=== PATIENT | female | born 1960 | race Caucasian/White ===

== ENCOUNTER 2017-11-29 14:48 | Emergency (ER) | payer MEDICARE ==
[~2017-11-29] VITALS: Ht 157.5 cm; Wt 54.5 kg
[~2017-11-29 14:48] MED LIST: GABA300C10 PO; LISI-170 PO; LORA1TAB PO; SENN-87 PO; TRAZ50TA18 PO
[2017-11-29] MEDS ORDERED: SODIUM CHLORIDE FLUSH 10ML SYR IVF ONE (15:00)
[2017-11-29] MEDS ORDERED: SODIUM CHLORIDE 0.9% 1,000ML IVBOLUS ONE ×2 (15:00→15:30)
[2017-11-29] MEDS ORDERED: ONDANSETRON 2MG/ML, 2ML IVPush ONE (15:00)
[2017-11-29] MEDS ORDERED: LORazepam 2 MG/ML, 1ML IVPush ONE (15:30)
[2017-11-29] MEDS ORDERED: ONDANSETRON 2MG/ML, 2ML ONE (15:42)
[2017-11-29] MEDS ORDERED: LORazepam 2 MG/ML, 1ML ONE (15:42)
[2017-11-29 15:45] LABS: ALANINE AMINOTRANSFERASE 46 U/L (12-78); ALBUMIN 3.4 g/dL (3.4-5.0); ANION GAP 7 mmol/L (5-15); CALCIUM 8.4 mg/dL (8.5-10.1); CHLORIDE 105 mmol/L (98-107); CREATININE 0.52 mg/dL (0.55-1.02)
[2017-11-29 15:50] LABS: ALKALINE PHOSPHATASE 83 U/L (45-117); BILIRUBIN,TOTAL 0.4 mg/dL (0.2-1.0); TOTAL PROTEIN 7.9 g/dL (6.4-8.2); TROPONIN I < 0.015 ng/mL (0.000-0.045)
[2017-11-29 15:53] LABS: MD YES
[2017-11-29 15:58] LABS: MEAN CORPUSCULAR HGB CONC 32.6 g/dL (32.4-35.8); MEAN CORPUSCULAR VOLUME 89.1 fL (80-100); RED BLOOD COUNT 5.68 x10^6/uL (3.82-5.3); RED CELL DISTRIBUTION WIDTH 15.4 % (9.6-15.2)
[2017-11-29 16:03] LABS: EOS#(MANUAL) 0.33 x10^3/uL (0.0-0.4); EOS% (MANUAL) 2 % (1-7); LYMPH#(MANUAL) 2.62 x10^3/uL (1-3.4); LYMPHS% (MANUAL) 16 % (22-44); MONOS% (MANUAL) 11 % (2-9); SEG#(MANUAL) 11.64 x10^3/uL (1.8-6.8); SEGS% (MANUAL) 71 % (42-75)
[2017-11-29 16:07] LABS: ANISOCYTOSIS 1+; SPHEROCYTES 1+
[2017-11-29 16:08] LABS: HOWELL-JOLLY BODIES 1+
[2017-11-29 16:09] LABS: <PLATELET ESTIMATE> ADEQUATE; GIANT PLATELETS 1+
[2017-11-29 16:27] LABS: MEAN PLATELET VOLUME 13.1 fL (7.4-10.4)
[2017-11-29 16:28] LABS: PLATELET COUNT 210 x10^3/uL (130-400)
[2017-11-29 17:17] VITALS: BP 121/84
[2017-11-29] MEDS ORDERED: HYDROmorphone 2 MG/ML, 1ML ONE (17:25)
== END 2017-11-29 17:21 | disposition home or self-care (01) ==
LOC: ED 17:02
DX: F41.1 Generalized anxiety disorder (principal); R11.2 Nausea with vomiting, unspecified
CPT/HCPCS: 36415; 71045; 80053; 83690; 84484; 85025; 93005; 96374; 96375; 99285; J2060; J2405

== ENCOUNTER 2018-02-04 16:59 | Emergency (ER) | payer MEDICARE ==
[~2018-02-04] VITALS: Ht 157.5 cm; Wt 58.0 kg
[~2018-02-04 16:59] MED LIST changes: +NICO-487 TD; +PRED5TAB PO; +PROMACTA PO
[2018-02-04] MEDS ORDERED: LORazepam 2 MG/ML, 1ML ONE (17:38)
[2018-02-04] MEDS ORDERED: LORazepam 2 MG/ML, 1ML IM ONE (18:00)
[2018-02-04 18:18] VITALS: BP 144/88
== END 2018-02-04 18:44 | disposition home or self-care (01) ==
LOC: ED 18:20
DX: F41.1 Generalized anxiety disorder (principal); R11.2 Nausea with vomiting, unspecified; I10 Essential (primary) hypertension
CPT/HCPCS: 96372; 99284; J2060

== ENCOUNTER 2018-03-12 12:10 | Inpatient (IN) | payer MEDICARE ==
[~2018-03-12] VITALS: Ht 157.5 cm; Wt 57.9 kg
[~2018-03-12 12:10] MED LIST changes: +GABA300C PO; +PRED20TA PO; +QUET200T4 PO
[2018-03-12] MEDS ORDERED: ACETAMINOPHEN 500 MG TABLET ONE (13:26)
[2018-03-12] MEDS ORDERED: SODIUM CHLORIDE 0.9% 1,000ML IVBOLUS ONE ×2 (13:30→15:00)
[2018-03-12] MEDS ORDERED: ACETAMINOPHEN 500 MG TABLET PO ONE (13:30)
[2018-03-12] MEDS ORDERED: SODIUM CHLORIDE FLUSH 10ML SYR IVF ONE (13:30)
[2018-03-12 13:55] LABS: ALANINE AMINOTRANSFERASE 49 U/L (12-78); ALBUMIN 2.3 g/dL (3.4-5.0); ANION GAP 10 mmol/L (5-15); CALCIUM 8.8 mg/dL (8.5-10.1); CHLORIDE 106 mmol/L (98-107); CREATININE 0.66 mg/dL (0.55-1.02)
[2018-03-12 13:57] LABS: ALKALINE PHOSPHATASE 93 U/L (45-117); BILIRUBIN,TOTAL 0.4 mg/dL (0.2-1.0); TOTAL PROTEIN 7.7 g/dL (6.4-8.2)
[2018-03-12 14:00] LABS: TROPONIN I < 0.015 ng/mL (0.000-0.045)
[2018-03-12 14:04] LABS: MEAN CORPUSCULAR HGB CONC 33.7 g/dL (32.4-35.8); MEAN CORPUSCULAR VOLUME 85.9 fL (80-100); RED BLOOD COUNT 4.39 x10^6/uL (3.82-5.3); RED CELL DISTRIBUTION WIDTH 15.7 % (9.6-15.2)
[2018-03-12 14:05] LABS: PLATELET COUNT 26 x10^3/uL (130-400)
[2018-03-12 14:06] LABS: MD YES; MEAN PLATELET VOLUME 11.6 fL (7.4-10.4)
[2018-03-12 14:07] LABS: BAND#(MANUAL) 0.28 x10^3/uL; BANDS%(MANUAL) 1 % (0-7); LYMPH#(MANUAL) 0.55 x10^3/uL (1-3.4); LYMPHS% (MANUAL) 2 % (22-44); MONOS#(MANUAL) 1.11 x10^3/uL (0.3-2.7); MONOS% (MANUAL) 4 % (2-9); SEG#(MANUAL) 25.76 x10^3/uL (1.8-6.8); SEGS% (MANUAL) 93 % (42-75)
[2018-03-12 14:08] LABS: ANISOCYTOSIS 1+; HOWELL-JOLLY BODIES 1+; POLYCHROMASIA 1+
[2018-03-12 14:09] LABS: <PLATELET ESTIMATE> DECREASED; GIANT PLATELETS 1+; LARGE PLATELETS 1+
[2018-03-12 14:51] LABS: MICROSCOPIC AUTO
[2018-03-12 15:00] LABS: CULTURE INDICATED? YES
[2018-03-12] MEDS ORDERED: CEFTRIAXONE PMX 1GM/50ML 50 ML ONE (15:13)
[2018-03-12] MEDS ORDERED: CEFTRIAXONE PMX 1GM/50ML 50 ML IV ONE (15:30)
[2018-03-12] MEDS ORDERED: ONDANSETRON 2MG/ML, 2ML IVPush PRN (16:30)
[2018-03-12] MEDS ORDERED: QUET200T4 PO (16:46)
[2018-03-12] MEDS ORDERED: ONDANSETRON ODT 4 MG PO PRN (17:00)
[2018-03-12] MEDS: ACETAMINOPHEN 325 MG TABLET PO PRN (18:02)
[2018-03-12] MEDS: METHOCARBAMOL 500 MG TABLET PO PRN (18:02)
[2018-03-12] MEDS: SODIUM CHLORIDE 0.9% 1,000 ML IV SCH (18:25)
[2018-03-12 18:50] VITALS: BP 100/66
[2018-03-12 19:22] LABS: TROPONIN I < 0.015 ng/mL (0.000-0.045)
[2018-03-12] MEDS ORDERED: QUETIAPINE 200 MG TABLET PO SCH (21:00)
[2018-03-12] MEDS ORDERED: LORazepam 1MG TABLET PO SCH ×2 (21:00)
[2018-03-12] MEDS ORDERED: LORazepam 0.5MG TABLET ONE (21:46)
[2018-03-12] MEDS: GABAPENTIN 300 MG CAPSULE PO PRN (21:48)
[2018-03-12] MEDS: ALUMINUM/MAG/SIMETHICONE 30 ML UDC PO PRN (21:48)
[2018-03-12] MEDS: NICOTINE 21 MG/24 HR PATCH.TD24 TD SCH (21:49)
[2018-03-13 01:25] LABS: TROPONIN I < 0.015 ng/mL (0.000-0.045)
[2018-03-13] MEDS: SODIUM CHLORIDE 0.9% 1,000 ML IV SCH ×3 (01:57→18:09)
[2018-03-13] MEDS: METHOCARBAMOL 500 MG TABLET PO PRN ×3 (01:57→18:15)
[2018-03-13 02:00] VITALS: BP 134/77
[2018-03-13] MEDS: LORazepam 0.5MG TABLET PO SCH ×4 (03:08→21:39)
[2018-03-13] MEDS: GABAPENTIN 300 MG CAPSULE PO PRN (05:36)
[2018-03-13] MEDS: ACETAMINOPHEN 325 MG TABLET PO PRN (05:36)
[2018-03-13 06:41] VITALS: BP 145/77
[2018-03-13 06:41] LABS: ANION GAP 6 mmol/L (5-15); CALCIUM 7.4 mg/dL (8.5-10.1); CHLORIDE 113 mmol/L (98-107); CREATININE 0.36 mg/dL (0.55-1.02)
[2018-03-13 06:44] LABS: TROPONIN I < 0.015 ng/mL (0.000-0.045)
[2018-03-13 06:45] LABS: MEAN CORPUSCULAR HEMOGLOBIN 29.5 pg (27.0-34.8); MEAN CORPUSCULAR HGB CONC 33.9 g/dL (32.4-35.8); MEAN CORPUSCULAR VOLUME 86.9 fL (80-100); MEAN PLATELET VOLUME 9.8 fL (7.4-10.4); RED BLOOD COUNT 4.06 x10^6/uL (3.82-5.3); RED CELL DISTRIBUTION WIDTH 16.6 % (9.6-15.2)
[2018-03-13 06:46] LABS: MD YES
[2018-03-13 06:48] LABS: EOS#(MANUAL) 0.21 x10^3/uL (0.0-0.4); EOS% (MANUAL) 1 % (1-7); LYMPH#(MANUAL) 2.33 x10^3/uL (1-3.4); LYMPHS% (MANUAL) 11 % (22-44); MONOS#(MANUAL) 2.12 x10^3/uL (0.3-2.7); MONOS% (MANUAL) 10 % (2-9); NRBC % (MANUAL) 1 % (0-1); SEG#(MANUAL) 16.54 x10^3/uL (1.8-6.8); SEGS% (MANUAL) 78 % (42-75)
[2018-03-13 06:53] LABS: <PLATELET ESTIMATE> DECREASED; ANISOCYTOSIS 1+; GIANT PLATELETS 1+; LARGE PLATELETS 1+; PLATELET COUNT 21 x10^3/uL (130-400); POLYCHROMASIA 1+
[2018-03-13] MEDS ORDERED: QUETIAPINE 200 MG TABLET PO SCH (09:00)
[2018-03-13] MEDS: LISINOPRIL 20 MG TABLET PO SCH (09:32)
[2018-03-13 14:17] VITALS: BP 118/75
[2018-03-13] MEDS: ALUMINUM/MAG/SIMETHICONE 30 ML UDC PO PRN ×2 (18:15→23:57)
[2018-03-13] MEDS: NICOTINE 21 MG/24 HR PATCH.TD24 TD SCH (19:41)
[2018-03-13 19:45] VITALS: BP 124/79
[2018-03-13] MEDS ORDERED: TEMAZEPAM 15 MG CAPSULE PO ONE (21:30)
[2018-03-14] MEDS: SODIUM CHLORIDE 0.9% 1,000 ML IV SCH (01:12)
[2018-03-14 01:25] VITALS: BP 147/82
[2018-03-14] MEDS: METHOCARBAMOL 500 MG TABLET PO PRN ×2 (02:33→09:46)
[2018-03-14] MEDS: LORazepam 0.5MG TABLET PO SCH ×4 (03:03→21:24)
[2018-03-14 07:06] VITALS: BP 148/93
[2018-03-14 08:26] LABS: MEAN CORPUSCULAR HEMOGLOBIN 28.9 pg (27.0-34.8); MEAN CORPUSCULAR HGB CONC 33.5 g/dL (32.4-35.8); MEAN CORPUSCULAR VOLUME 86.3 fL (80-100); RED BLOOD COUNT 4.02 x10^6/uL (3.82-5.3); RED CELL DISTRIBUTION WIDTH 16.3 % (9.6-15.2)
[2018-03-14 08:28] LABS: ANION GAP 9 mmol/L (5-15); CALCIUM 7.5 mg/dL (8.5-10.1); CHLORIDE 113 mmol/L (98-107)
[2018-03-14 08:29] LABS: CREATININE 0.41 mg/dL (0.55-1.02)
[2018-03-14 08:40] LABS: MD YES
[2018-03-14 08:41] LABS: BANDS%(MANUAL) 1 % (0-7); EOS% (MANUAL) 1 % (1-7); LYMPH#(MANUAL) 1.78 x10^3/uL (1-3.4); LYMPHS% (MANUAL) 9 % (22-44); MONOS#(MANUAL) 1.39 x10^3/uL (0.3-2.7); MONOS% (MANUAL) 7 % (2-9); NRBC % (MANUAL) 1 % (0-1); SEG#(MANUAL) 16.24 x10^3/uL (1.8-6.8); SEGS% (MANUAL) 82 % (42-75)
[2018-03-14 08:43] LABS: ANISOCYTOSIS 1+
[2018-03-14 09:10] LABS: PLATELET COUNT 20 x10^3/uL (130-400)
[2018-03-14 09:11] LABS: <PLATELET ESTIMATE> DECREASED; GIANT PLATELETS 1+; LARGE PLATELETS 1+; MEAN PLATELET VOLUME 9.1 fL (7.4-10.4); POLYCHROMASIA 1+
[2018-03-14] MEDS: LISINOPRIL 20 MG TABLET PO SCH (09:46)
[2018-03-14 13:27] VITALS: BP 144/85
[2018-03-14] MEDS: GABAPENTIN 300 MG CAPSULE PO PRN ×2 (15:29→21:24)
[2018-03-14 19:00] VITALS: BP 96/61
[2018-03-14] MEDS: QUETIAPINE 200 MG TABLET PO SCH (21:24)
[2018-03-14] MEDS: NICOTINE 21 MG/24 HR PATCH.TD24 TD SCH (21:24)
[2018-03-15] MEDS: LORazepam 0.5MG TABLET PO SCH ×4 (03:00→20:59)
[2018-03-15 03:59] VITALS: BP 135/79
[2018-03-15] MEDS: METHOCARBAMOL 500 MG TABLET PO PRN ×3 (07:54→22:12)
[2018-03-15 08:07] VITALS: BP 146/93
[2018-03-15] MEDS: LISINOPRIL 20 MG TABLET PO SCH (08:51)
[2018-03-15 11:58] LABS: MEAN CORPUSCULAR HEMOGLOBIN 29.1 pg (27.0-34.8); MEAN CORPUSCULAR HGB CONC 33.7 g/dL (32.4-35.8); MEAN CORPUSCULAR VOLUME 86.4 fL (80-100); MEAN PLATELET VOLUME 10.2 fL (7.4-10.4); RED BLOOD COUNT 4.35 x10^6/uL (3.82-5.3); RED CELL DISTRIBUTION WIDTH 16.3 % (9.6-15.2)
[2018-03-15 11:59] LABS: PLATELET COUNT 30 x10^3/uL (130-400)
[2018-03-15 12:00] LABS: MD YES
[2018-03-15 12:01] LABS: LYMPH#(MANUAL) 0.48 x10^3/uL (1-3.4); LYMPHS% (MANUAL) 3 % (22-44); MONOS#(MANUAL) 0.95 x10^3/uL (0.3-2.7); MONOS% (MANUAL) 6 % (2-9); SEG#(MANUAL) 14.47 x10^3/uL (1.8-6.8); SEGS% (MANUAL) 91 % (42-75)
[2018-03-15 12:02] LABS: <PLATELET ESTIMATE> DECREASED; ANISOCYTOSIS 1+; GIANT PLATELETS 1+; LARGE PLATELETS 1+; POLYCHROMASIA 1+
[2018-03-15 15:45] VITALS: BP 140/88
[2018-03-15 18:52] VITALS: BP 148/97
[2018-03-15] MEDS: NICOTINE 21 MG/24 HR PATCH.TD24 TD SCH (21:22)
[2018-03-15] MEDS: QUETIAPINE 200 MG TABLET PO SCH (21:22)
[2018-03-16 00:03] VITALS: BP 121/71
[2018-03-16] MEDS: GABAPENTIN 300 MG CAPSULE PO PRN ×2 (00:29→09:10)
[2018-03-16] MEDS: LORazepam 0.5MG TABLET PO SCH ×4 (03:00→20:26)
[2018-03-16 05:33] LABS: CHLORIDE 108 mmol/L (98-107)
[2018-03-16 05:37] LABS: ANION GAP 8 mmol/L (5-15); CALCIUM 8.8 mg/dL (8.5-10.1)
[2018-03-16 06:12] LABS: MEAN CORPUSCULAR HGB CONC 34.7 g/dL (32.4-35.8); MEAN CORPUSCULAR VOLUME 86.6 fL (80-100); RED BLOOD COUNT 4.29 x10^6/uL (3.82-5.3); RED CELL DISTRIBUTION WIDTH 16.4 % (9.6-15.2)
[2018-03-16 06:13] LABS: MEAN PLATELET VOLUME 9.2 fL (7.4-10.4); PLATELET COUNT 26 x10^3/uL (130-400)
[2018-03-16 06:14] LABS: MD YES
[2018-03-16 06:15] LABS: NRBC % (MANUAL) 1 % (0-1)
[2018-03-16 06:16] LABS: <PLATELET ESTIMATE> DECREASED; GIANT PLATELETS 1+; LARGE PLATELETS 2+; LYMPH#(MANUAL) 2.44 x10^3/uL (1-3.4); LYMPHS% (MANUAL) 14 % (22-44); MONOS#(MANUAL) 1.04 x10^3/uL (0.3-2.7); MONOS% (MANUAL) 6 % (2-9); SEG#(MANUAL) 13.92 x10^3/uL (1.8-6.8); SEGS% (MANUAL) 80 % (42-75)
[2018-03-16 06:17] LABS: ANISOCYTOSIS 1+; POLYCHROMASIA 1+
[2018-03-16 06:18] LABS: HOWELL-JOLLY BODIES 1+
[2018-03-16 07:59] VITALS: BP 138/84
[2018-03-16] MEDS: LISINOPRIL 20 MG TABLET PO SCH (09:03)
[2018-03-16 12:18] VITALS: BP 126/85
[2018-03-16] MEDS: METHOCARBAMOL 500 MG TABLET PO PRN (14:06)
[2018-03-16] MEDS: ALUMINUM/MAG/SIMETHICONE 30 ML UDC PO PRN (15:46)
[2018-03-16 18:43] VITALS: BP 117/77
[2018-03-16] MEDS: QUETIAPINE 200 MG TABLET PO SCH (20:26)
[2018-03-16] MEDS: NICOTINE 21 MG/24 HR PATCH.TD24 TD SCH (20:26)
[2018-03-17 00:49] VITALS: BP 101/66
[2018-03-17] MEDS: LORazepam 0.5MG TABLET PO SCH ×3 (04:35→14:02)
[2018-03-17 05:07] LABS: ANION GAP 6 mmol/L (5-15); CALCIUM 8.2 mg/dL (8.5-10.1); CHLORIDE 107 mmol/L (98-107); CREATININE 0.49 mg/dL (0.55-1.02)
[2018-03-17 05:36] LABS: BASOPHILS # (AUTO) 0.05 x10^3/uL (0-0.1); BASOPHILS % (AUTO) 1 % (0-1); EOSINOPHILS # (AUTO) 0.18 x10^3/uL (0-0.4); EOSINOPHILS % (AUTO) 2 % (1-7); LYMPHOCYTES # (AUTO) 1.86 x10^3/uL (1-3.4); LYMPHOCYTES % (AUTO) 19 % (22-44); MD SCAN; MEAN CORPUSCULAR HEMOGLOBIN 28.9 pg (27.0-34.8); MEAN CORPUSCULAR HGB CONC 33.4 g/dL (32.4-35.8); MEAN CORPUSCULAR VOLUME 86.7 fL (80-100); MEAN PLATELET VOLUME 8.8 fL (7.4-10.4); MONOCYTES # (AUTO) 1.24 x10^3/uL (0.2-0.8); MONOCYTES % (AUTO) 13 % (2-9); NEUTROPHILS # (AUTO) 6.56 x10^3/uL (1.8-6.8); NEUTROPHILS % (AUTO) 66 % (42-75); RED BLOOD COUNT 4.52 x10^6/uL (3.82-5.3); RED CELL DISTRIBUTION WIDTH 16.6 % (9.6-15.2)
[2018-03-17 05:38] LABS: PLATELET COUNT 26 x10^3/uL (130-400)
[2018-03-17] MEDS: METHOCARBAMOL 500 MG TABLET PO PRN (06:33)
[2018-03-17 08:09] VITALS: BP 113/74
[2018-03-17] MEDS: LISINOPRIL 20 MG TABLET PO SCH (09:11)
[2018-03-17] MEDS: GABAPENTIN 300 MG CAPSULE PO PRN (09:11)
== END 2018-03-17 14:25 | DRG 314 ==
LOC: ED 15:32 → EDIP 15:34 → ED 16:00 → 3NW 16:54
PROVIDERS: ADMIT Hospitalist; ATTEND Hospitalist
DX: I95.0 Idiopathic hypotension (principal); E43 Unspecified severe protein-calorie malnutrition; D69.3 Immune thrombocytopenic purpura; F13.20 Sedative, hypnotic or anxiolytic dependence, uncomplicated; F41.9 Anxiety disorder, unspecified; G89.4 Chronic pain syndrome; I10 Essential (primary) hypertension; Z79.899 Other long term (current) drug therapy; Z88.0 Allergy status to penicillin
CPT/HCPCS: 36415; 71045; 80048; 80053; 81001; 83605; 83735; 84100; 84484; 85025; 87040; 87086; 93005; 93970; 96361; 96365; J0696; J7030; J7512

== ENCOUNTER 2018-04-04 12:33 | Emergency (ER) | payer MEDICARE ==
[~2018-04-04] VITALS: Ht 157.5 cm; Wt 60.5 kg
[2018-04-04] MEDS ORDERED: SODIUM CHLORIDE FLUSH 10ML SYR IVF ONE (13:00)
[2018-04-04 13:33] LABS: ANION GAP 7 mmol/L (5-15); CALCIUM 9.3 mg/dL (8.5-10.1); CHLORIDE 107 mmol/L (98-107); CREATININE 0.59 mg/dL (0.55-1.02)
[2018-04-04 13:56] LABS: MEAN CORPUSCULAR HEMOGLOBIN 27.7 pg (27.0-34.8); MEAN CORPUSCULAR HGB CONC 32.9 g/dL (32.4-35.8); MEAN CORPUSCULAR VOLUME 84.3 fL (80-100); RED BLOOD COUNT 4.92 x10^6/uL (3.82-5.3); RED CELL DISTRIBUTION WIDTH 16.2 % (9.6-15.2)
[2018-04-04] MEDS ORDERED: LORazepam 2 MG/ML, 1ML ONE (13:57)
[2018-04-04] MEDS ORDERED: LORazepam 2 MG/ML, 1ML IVPush ONE (14:00)
[2018-04-04 14:11] VITALS: BP 101/57
[2018-04-04 14:13] LABS: MEAN PLATELET VOLUME 8.9 fL (7.4-10.4); PLATELET COUNT 50 x10^3/uL (130-400)
[2018-04-04 14:16] LABS: MD YES
[2018-04-04 14:17] LABS: BANDS%(MANUAL) 1 % (0-7); LYMPH#(MANUAL) 5.47 x10^3/uL (1-3.4); LYMPHS% (MANUAL) 18 % (22-44); METAMYELOCYTES% (MANUAL) 1 % (0-1); MONOS#(MANUAL) 3.34 x10^3/uL (0.3-2.7); MONOS% (MANUAL) 11 % (2-9); SEG#(MANUAL) 20.98 x10^3/uL (1.8-6.8); SEGS% (MANUAL) 69 % (42-75)
[2018-04-04 14:19] LABS: ANISOCYTOSIS 1+; MICROCYTOSIS 1+
[2018-04-04 14:20] LABS: <PLATELET ESTIMATE> DECREASED; GIANT PLATELETS 1+; LARGE PLATELETS 2+
[2018-04-04 14:21] LABS: HOWELL-JOLLY BODIES 1+
== END 2018-04-04 15:19 | disposition home or self-care (01) ==
LOC: ED 14:30
DX: S09.90XA Unspecified injury of head, initial encounter (principal); D69.3 Immune thrombocytopenic purpura; D72.829 Elevated white blood cell count, unspecified; F41.1 Generalized anxiety disorder; I10 Essential (primary) hypertension; D69.6 Thrombocytopenia, unspecified; Z90.81 Acquired absence of spleen; F12.10 Cannabis abuse, uncomplicated; W01.0XXA Fall on same level from slipping, tripping and stumbling without subsequent striking against object, initial encounter; Y93.89 Activity, other specified; Y99.8 Other external cause status; Y92.89 Other specified places as the place of occurrence of the external cause
CPT/HCPCS: 36415; 70450; 72110; 80048; 82040; 85025; 96374; 99285; J2060

== ENCOUNTER 2018-04-05 10:41 | Emergency (ER) | payer MEDICARE ==
[~2018-04-05] VITALS: Ht 157.5 cm; Wt 61.0 kg
[2018-04-05] MEDS ORDERED: LORazepam 2 MG/ML, 1ML ONE (11:19)
[2018-04-05] MEDS ORDERED: LORazepam 2 MG/ML, 1ML IM ONE (11:30)
[2018-04-05 12:08] VITALS: BP 116/78
== END 2018-04-05 12:21 | disposition home or self-care (01) ==
LOC: ED 11:07
DX: F41.1 Generalized anxiety disorder (principal); F32.9 Major depressive disorder, single episode, unspecified; I10 Essential (primary) hypertension
CPT/HCPCS: 96372; 99284; J2060

== ENCOUNTER 2018-04-14 13:02 | Emergency (ER) | payer MEDICARE ==
[~2018-04-14] VITALS: Ht 157.5 cm; Wt 60.2 kg
[2018-04-14 13:07] VITALS: BP 128/83
[2018-04-14] MEDS ORDERED: LORazepam 1MG TABLET PO ONE (14:00)
[2018-04-14] MEDS ORDERED: LORazepam 1MG TABLET ONE (14:14)
== END 2018-04-14 14:25 | disposition home or self-care (01) ==
LOC: ED 13:41
DX: F41.1 Generalized anxiety disorder (principal); I10 Essential (primary) hypertension; Z88.6 Allergy status to analgesic agent; Z88.0 Allergy status to penicillin; Z79.899 Other long term (current) drug therapy
CPT/HCPCS: 99284

== ENCOUNTER 2018-04-21 12:51 | Emergency (ER) | payer MEDICARE ==
[~2018-04-21] VITALS: Ht 157.5 cm; Wt 62.8 kg
[2018-04-21 12:53] VITALS: BP 145/89
[2018-04-21] MEDS ORDERED: LORazepam 1MG TABLET PO ONE (13:30)
[2018-04-21 14:11] LABS: ANION GAP 7 mmol/L (5-15); CALCIUM 9.2 mg/dL (8.5-10.1); CHLORIDE 107 mmol/L (98-107); CREATININE 0.65 mg/dL (0.55-1.02)
[2018-04-21 14:14] LABS: TROPONIN I < 0.015 ng/mL (0.000-0.045)
[2018-04-21] MEDS ORDERED: LORazepam 1MG TABLET ONE (14:25)
[2018-04-21 14:40] LABS: MEAN CORPUSCULAR HEMOGLOBIN 25.9 pg (27.0-34.8); MEAN CORPUSCULAR HGB CONC 31.9 g/dL (32.4-35.8); MEAN CORPUSCULAR VOLUME 81.2 fL (80-100); RED BLOOD COUNT 5.08 x10^6/uL (3.82-5.3); RED CELL DISTRIBUTION WIDTH 16.6 % (9.6-15.2)
[2018-04-21 14:57] LABS: MEAN PLATELET VOLUME 12.6 fL (7.4-10.4)
[2018-04-21 14:58] LABS: MD YES
[2018-04-21 15:01] LABS: <PLATELET ESTIMATE> ADEQUATE; ANISOCYTOSIS 1+; BANDS%(MANUAL) 2 % (0-7); BASOS% (MANUAL) 1 % (0-1); LARGE PLATELETS 3+; LYMPH#(MANUAL) 1.01 x10^3/uL (1-3.4); LYMPHS% (MANUAL) 5 % (22-44); METAMYELOCYTES% (MANUAL) 1 % (0-1); MONOS#(MANUAL) 1.21 x10^3/uL (0.3-2.7); MONOS% (MANUAL) 6 % (2-9); MYELOCYTES% (MANUAL) 1 % (0-0); POLYCHROMASIA 1+; SEG#(MANUAL) 16.97 x10^3/uL (1.8-6.8); SEGS% (MANUAL) 84 % (42-75)
[2018-04-21 15:02] LABS: GIANT PLATELETS 3+
[2018-04-21 15:47] LABS: PLATELET COUNT 320 x10^3/uL (130-400)
== END 2018-04-21 15:41 | disposition home or self-care (01) ==
LOC: ED 14:40
DX: R07.2 Precordial pain (principal); F41.9 Anxiety disorder, unspecified; I10 Essential (primary) hypertension; F32.9 Major depressive disorder, single episode, unspecified
CPT/HCPCS: 36415; 71045; 80048; 82040; 84484; 85025; 93005; 99285

== ENCOUNTER 2018-06-04 10:40 | Emergency (ER) | payer MEDICARE ==
[~2018-06-04] VITALS: Ht 157.5 cm; Wt 60.0 kg
[~2018-06-04 10:40] MED LIST changes: +TRAZ-136 PO; -TRAZ50TA18 PO
[2018-06-04 10:45] VITALS: BP 96/66
[2018-06-04] MEDS ORDERED: LORazepam 0.5MG TABLET ONE (11:06)
[2018-06-04] MEDS ORDERED: LORazepam 0.5MG TABLET PO ONE (11:30)
== END 2018-06-04 11:34 | disposition home or self-care (01) ==
LOC: ED 11:09
DX: F41.1 Generalized anxiety disorder (principal); I10 Essential (primary) hypertension; F17.200 Nicotine dependence, unspecified, uncomplicated
CPT/HCPCS: 99284

== ENCOUNTER 2018-08-12 21:30 | Emergency (ER) | payer MEDICARE ==
[~2018-08-12] VITALS: Ht 157.5 cm; Wt 58.0 kg
[~2018-08-12 21:30] MED LIST changes: +LORA-445 PO; +PRED-402 PO; +QUET400T4 PO
[2018-08-12] MEDS ORDERED: SODIUM CHLORIDE FLUSH 10ML SYR IVF ONE (23:00)
[2018-08-12] MEDS ORDERED: SODIUM CHLORIDE 0.9% 1,000ML IVBOLUS ONE (23:00)
[2018-08-12] MEDS ORDERED: ONDANSETRON 2MG/ML, 2ML IVPush ONE (23:00)
[2018-08-12] MEDS ORDERED: ONDANSETRON 2MG/ML, 2ML ONE (23:10)
[2018-08-12] MEDS ORDERED: MORPHINE SULFATE 4 MG/ML, 1ML ONE (23:11)
[2018-08-12] MEDS: MORPHINE SULFATE 4 MG/ML, 1ML IVPush PRN (23:15)
[2018-08-12 23:20] LABS: ALANINE AMINOTRANSFERASE 34 U/L (12-78); ALBUMIN 3.8 g/dL (3.4-5.0); ANION GAP 11 mmol/L (5-15); CALCIUM 9.1 mg/dL (8.5-10.1); CHLORIDE 103 mmol/L (98-107)
[2018-08-12 23:23] LABS: ALKALINE PHOSPHATASE 117 U/L (45-117); BILIRUBIN,TOTAL 0.2 mg/dL (0.2-1.0); CREATININE 0.66 mg/dL (0.55-1.02); TOTAL PROTEIN 8.1 g/dL (6.4-8.2)
[2018-08-12 23:25] LABS: CULTURE INDICATED? NO; MICROSCOPIC NOT IND
[2018-08-12] MEDS ORDERED: MAALOX/HYOSCYAMINE/LIDOCAINE 45 ML BTL ONE (23:45)
[2018-08-12 23:52] LABS: MEAN CORPUSCULAR HEMOGLOBIN 24.9 pg (27.0-34.8); MEAN CORPUSCULAR HGB CONC 32.9 g/dL (32.4-35.8); MEAN CORPUSCULAR VOLUME 75.5 fL (80-100); RED BLOOD COUNT 6.17 x10^6/uL (3.82-5.3); RED CELL DISTRIBUTION WIDTH 23.1 % (9.6-15.2)
[2018-08-12 23:53] LABS: MEAN PLATELET VOLUME 12.9 fL (7.4-10.4); PLATELET COUNT 32 x10^3/uL (130-400)
[2018-08-12 23:54] LABS: MD YES
[2018-08-12 23:57] LABS: ANISOCYTOSIS 1+; BAND#(MANUAL) 0.85 x10^3/uL; BANDS%(MANUAL) 3 % (0-7); HYPOCHROMIA 1+; LYMPHS% (MANUAL) 6 % (22-44); MICROCYTOSIS 1+; MONOS#(MANUAL) 4.25 x10^3/uL (0.3-2.7); MONOS% (MANUAL) 15 % (2-9); SEG#(MANUAL) 21.51 x10^3/uL (1.8-6.8); SEGS% (MANUAL) 76 % (42-75)
[2018-08-12 23:58] LABS: <PLATELET ESTIMATE> DECREASED; GIANT PLATELETS 2+; LARGE PLATELETS 2+; OVALOCYTES 1+; POLYCHROMASIA 1+
[2018-08-12 23:59] LABS: BIZARRE PLATELETS 1+
[2018-08-13] MEDS ORDERED: MAALOX/HYOSCYAMINE/LIDOCAINE 45 ML BTL PO ONE
[2018-08-13] MEDS ORDERED: MORPHINE SULFATE 4 MG/ML, 1ML ONE (00:22)
[2018-08-13] MEDS: MORPHINE SULFATE 4 MG/ML, 1ML IVPush PRN (00:26)
[2018-08-13] MEDS ORDERED: ZIPRASIDONE 20 MG INJ IM ONE ×2 (01:19→01:30)
[2018-08-13 03:04] VITALS: BP 129/76
[2018-08-13] MEDS ORDERED: OMNIPAQUE 350 MG/ML, 100ML BOTTLE ONE (23:47)
== END 2018-08-13 03:06 | disposition home or self-care (01) ==
LOC: ED 23:15
DX: K29.00 Acute gastritis without bleeding (principal); R10.12 Left upper quadrant pain; J45.909 Unspecified asthma, uncomplicated; I10 Essential (primary) hypertension; F32.9 Major depressive disorder, single episode, unspecified; F17.210 Nicotine dependence, cigarettes, uncomplicated; Z72.9 Problem related to lifestyle, unspecified
CPT/HCPCS: 36415; 74177; 80053; 80307; 81003; 83690; 85025; 86677; 96361; 96372; 96374; 96375; 96376; 99285; J2405; J3486; J7030; Q9967

== ENCOUNTER 2018-08-14 13:48 | Emergency (ER) | payer MEDICARE ==
[~2018-08-14] VITALS: Ht 157.5 cm; Wt 57.0 kg
[2018-08-14 14:27] LABS: ALBUMIN 3.4 g/dL (3.4-5.0); ANION GAP 12 mmol/L (5-15); CALCIUM 8.4 mg/dL (8.5-10.1); CHLORIDE 104 mmol/L (98-107)
[2018-08-14 14:31] LABS: ALANINE AMINOTRANSFERASE 29 U/L (12-78); ALKALINE PHOSPHATASE 99 U/L (45-117); BILIRUBIN,TOTAL 0.3 mg/dL (0.2-1.0); CREATININE 0.51 mg/dL (0.55-1.02); TOTAL PROTEIN 7.2 g/dL (6.4-8.2)
[2018-08-14 14:56] LABS: MEAN CORPUSCULAR HEMOGLOBIN 25.1 pg (27.0-34.8); MEAN CORPUSCULAR HGB CONC 33.2 g/dL (32.4-35.8); MEAN CORPUSCULAR VOLUME 75.6 fL (80-100); RED BLOOD COUNT 5.54 x10^6/uL (3.82-5.3); RED CELL DISTRIBUTION WIDTH 22.3 % (9.6-15.2)
[2018-08-14 14:57] LABS: MD YES
[2018-08-14 14:59] LABS: BAND#(MANUAL) 0.31 x10^3/uL; BANDS%(MANUAL) 1 % (0-7); LYMPHS% (MANUAL) 7 % (22-44); MONOS#(MANUAL) 4.71 x10^3/uL (0.3-2.7); MONOS% (MANUAL) 15 % (2-9); NRBC % (MANUAL) 1 % (0-1); REACTIVE LYMPHS # (MANUAL) 0.31 x10^3/uL (0-0); REACTIVE LYMPHS % (MANUAL) 1 % (0-0); SEG#(MANUAL) 23.86 x10^3/uL (1.8-6.8); SEGS% (MANUAL) 76 % (42-75)
[2018-08-14 15:06] LABS: MEAN PLATELET VOLUME 8.2 fL (7.4-10.4); PLATELET COUNT 65 x10^3/uL (130-400)
[2018-08-14 15:07] LABS: ANISOCYTOSIS 1+; HYPOCHROMIA 1+; MICROCYTOSIS 1+; OVALOCYTES 1+
[2018-08-14 15:08] LABS: <PLATELET ESTIMATE> DECREASED; BIZARRE PLATELETS 1+; GIANT PLATELETS 2+; LARGE PLATELETS 2+
[2018-08-14] MEDS ORDERED: DIPHENHYDRAMINE 50 MG/ML, 1ML ONE (15:15)
[2018-08-14] MEDS ORDERED: MAALOX/HYOSCYAMINE/LIDOCAINE 45 ML BTL ONE (15:15)
[2018-08-14] MEDS ORDERED: PROMETHAZINE 25 MG/ML, 1ML ONE (15:15)
[2018-08-14 15:25] LABS: MICROSCOPIC NOT IND
[2018-08-14] MEDS ORDERED: DIPHENHYDRAMINE 50 MG/ML, 1ML IM ONE (15:30)
[2018-08-14] MEDS ORDERED: MAALOX/HYOSCYAMINE/LIDOCAINE 45 ML BTL PO ONE (15:30)
[2018-08-14] MEDS ORDERED: PROMETHAZINE 25 MG/ML, 1ML IM ONE (15:30)
[2018-08-14 15:34] LABS: CULTURE INDICATED? NO
[2018-08-14 16:04] VITALS: BP 127/79
[2018-08-14] MEDS ORDERED: HYDROmorphone 1 MG/ML, 1ML IM ONE (16:30)
[2018-08-14] MEDS ORDERED: HYDROmorphone 2 MG/ML, 1ML ONE (16:48)
== END 2018-08-14 17:03 | disposition home or self-care (01) ==
LOC: ED 16:45
DX: K25.3 Acute gastric ulcer without hemorrhage or perforation (principal); B96.81 Helicobacter pylori [H. pylori] as the cause of diseases classified elsewhere; I10 Essential (primary) hypertension; F32.9 Major depressive disorder, single episode, unspecified; F41.1 Generalized anxiety disorder
CPT/HCPCS: 36415; 80053; 81003; 83690; 85025; 93005; 96372; 99285; J1170; J1200; J2550

== ENCOUNTER 2018-12-15 10:57 | Emergency (ER) | payer OTHER ==
[~2018-12-15] VITALS: Ht 157.5 cm; Wt 55.0 kg
[~2018-12-15 10:57] MED LIST changes: -SENN-87 PO; +SENN-88 PO; -TRAZ-136 PO; +TRAZ50TA66 PO
--- NOTE | 2018-12-15 11:39 | NUR ---
JINRIKISHA DRIVER: PT IN RADIOLOGY, TO GO TO ROOM WHEN EXAM COMPLETE.
--- NOTE | 2018-12-15 12:02 | NUR ---
PT TO ROOM 39 FROM RADIOLOGY. PT RESTING ON GURNEY. WARM BLANKET PROVIDED. PT STATES HER PLATELETS ARE LOW AND SHE FEELS WEAK. WENT TO DR. PEREZ FROM [facility] AND WAS TOLD HER PLATELETS ARE 15. THIS WAS 8 DAYS AGO. SHE HAS HAD INCREASED FALLS RECENTLY. CURRENTLY ON TRAZADONE 100 MG HS. P STATES WHEN PLATELETS GET LOW SHE FEELS INCREASINGLY WEAK. MONITORS APPLIED.
[2018-12-15 12:28] LABS: ALBUMIN 3.3 g/dL (3.4-5.0); ANION GAP 6 mmol/L (5-15); CALCIUM 9.8 mg/dL (8.5-10.1); CHLORIDE 106 mmol/L (98-107); CREATININE 0.52 mg/dL (0.55-1.02)
--- NOTE | 2018-12-15 12:28 | NUR ---
RPT FROM FRANKY MARIANO. CARE ASSUMED
[2018-12-15] MEDS ORDERED: LORazepam 1MG TABLET PO ONE (12:30)
[2018-12-15] MEDS ORDERED: SODIUM CHLORIDE 0.9% 1,000ML IVBOLUS ONE (12:30)
[2018-12-15 12:56] LABS: MEAN CORPUSCULAR HEMOGLOBIN 25.9 pg (27.0-34.8); MEAN CORPUSCULAR HGB CONC 32.9 g/dL (32.4-35.8); MEAN CORPUSCULAR VOLUME 78.7 fL (80-100); RED BLOOD COUNT 5.72 x10^6/uL (3.82-5.3)
[2018-12-15 12:57] LABS: PLATELET COUNT 45 x10^3/uL (130-400)
[2018-12-15 12:58] LABS: MD YES; MEAN PLATELET VOLUME 8.6 fL (7.4-10.4)
[2018-12-15 12:59] LABS: LYMPHS% (MANUAL) 19 % (22-44); MONOS#(MANUAL) 3.31 x10^3/uL (0.3-2.7); MONOS% (MANUAL) 18 % (2-9); SEG#(MANUAL) 11.59 x10^3/uL (1.8-6.8); SEGS% (MANUAL) 63 % (42-75)
[2018-12-15 13:00] LABS: ANISOCYTOSIS 1+; HOWELL-JOLLY BODIES 1+; MICROCYTOSIS 1+; PMNS WITH VACUOLES 1+
[2018-12-15 13:01] LABS: <PLATELET ESTIMATE> DECREASED; GIANT PLATELETS 2+; LARGE PLATELETS 2+
[2018-12-15] MEDS ORDERED: LORazepam 1MG TABLET ONE (13:31)
--- NOTE | 2018-12-15 13:56 | NUR ---
PT MEDICATED PER ORDERS. C/O SANTOS. AT BEDSIDE. AWAITING DISPO
[2018-12-15 14:37] LABS: MICROSCOPIC AUTO
[2018-12-15 14:38] LABS: CULTURE INDICATED? YES
--- NOTE | 2018-12-15 14:47 | NUR ---
IV FLUIDS INFUSING. CONTINUES TO HAVE SANTOS.
[2018-12-15] MEDS ORDERED: DIPHENHYDRAMINE 50 MG/ML, 1ML IVPush ONE (16:00)
[2018-12-15] MEDS ORDERED: METOCLOPRAMIDE 5 MG/ML, 2ML IVPush ONE (16:00)
[2018-12-15] MEDS ORDERED: METOCLOPRAMIDE 5 MG/ML, 2ML ONE (16:13)
[2018-12-15] MEDS ORDERED: DIPHENHYDRAMINE 50 MG/ML, 1ML ONE (16:13)
--- NOTE | 2018-12-15 16:23 | NUR ---
MEDICATED PER ORDERS FOR CONTINUING SANTOS
--- NOTE | 2018-12-15 16:58 | NUR ---
MD SPEAKING WITH PT ABOUT DISCHARGE
[2018-12-15 17:29] VITALS: BP 168/97
--- NOTE | 2018-12-15 17:29 | NUR ---
TECH IN ROOM PLACING AIR SPLINT LEFT ANKLE
--- NOTE | 2018-12-15 18:03 | NUR ---
WENT OVER DISCHARGE PAPERS WITH PT. PT STATES SHE CONTINUES TO HAVE A SANTOS AT THE [facility] IT HAS IMPROVED SOMEWHAT. ENCOURAGED PT TO TAKE ANTIHYPERTENSIVE, START ANTIBIOTICS AND GET REST SHE STATES SHE DID NOT SLEEP LAST NIGHT AND SEE IF THESE ACTIONS HELP IMPROVE SANTOS. NOTED TO PT ON DISCHARGE IT SAYS TO RETURN FOR NO IMPROVEMENT OF SANTOS. PT A&O, CONVERSING WITH STAFF. AMBULATED TO WHEELCHAIR AND THEN BROUGHT TO DISCHARGE DESK
== END 2018-12-15 18:17 | disposition home or self-care (01) ==
LOC: ED 14:06
DX: S93.492A Sprain of other ligament of left ankle, initial encounter (principal); E86.0 Dehydration; I10 Essential (primary) hypertension; J45.909 Unspecified asthma, uncomplicated; G43.C1 Periodic headache syndromes in child or adult, intractable; M19.012 Primary osteoarthritis, left shoulder; N30.00 Acute cystitis without hematuria; D69.3 Immune thrombocytopenic purpura; W19.XXXA Unspecified fall, initial encounter; F32.9 Major depressive disorder, single episode, unspecified; Y93.89 Activity, other specified; Y92.009 Unspecified place in unspecified non-institutional (private) residence as the place of occurrence of the external cause; Y99.8 Other external cause status
CPT/HCPCS: 36415; 72110; 73030; 73200; 73610; 73630; 80048; 81001; 82040; 85025; 87077; 87086; 87186; 93005; 96361; 96374; 96375; 99284; J1200; J2765; J7030

== ENCOUNTER 2019-01-16 01:54 | Emergency (ER) | payer MEDICARE ==
[~2019-01-16] VITALS: Ht 157.5 cm; Wt 65.0 kg
[2019-01-16] MEDS ORDERED: CALCIUM CARBONATE 500 MG TAB.CHEW PO ONE (02:30)
[2019-01-16] MEDS ORDERED: ACETAMINOPHEN 500 MG TABLET PO ONE (02:30)
[2019-01-16] MEDS ORDERED: CALCIUM CARBONATE 500 MG TAB.CHEW ONE ×2 (02:34→02:35)
[2019-01-16 02:50] LABS: ALANINE AMINOTRANSFERASE 25 U/L (12-78); ALBUMIN 3.2 g/dL (3.4-5.0); ANION GAP 5 mmol/L (5-15); CALCIUM 8.5 mg/dL (8.5-10.1); CHLORIDE 109 mmol/L (98-107); CREATININE 0.47 mg/dL (0.55-1.02)
[2019-01-16 02:53] LABS: D-DIMER 0.43 ug/mlFEU (0.00-0.52); INTERNATIONAL NORMALIZED RATIO 0.91 (0.93-1.1); PROTHROMBIN TIME 9.6 Seconds (9.6-11.5)
[2019-01-16 02:55] LABS: ALKALINE PHOSPHATASE 98 U/L (45-117); BILIRUBIN,TOTAL 0.1 mg/dL (0.2-1.0); TOTAL PROTEIN 6.7 g/dL (6.4-8.2); TROPONIN I < 0.015 ng/mL (0.000-0.045)
[2019-01-16 03:02] LABS: MEAN CORPUSCULAR HEMOGLOBIN 26.6 pg (27.0-34.8); MEAN CORPUSCULAR HGB CONC 32.4 g/dL (32.4-35.8); MEAN CORPUSCULAR VOLUME 82.1 fL (80-100); RED BLOOD COUNT 5.03 x10^6/uL (3.82-5.3); RED CELL DISTRIBUTION WIDTH 20.1 % (9.6-15.2)
[2019-01-16 03:03] LABS: MD YES; MEAN PLATELET VOLUME 9.1 fL (7.4-10.4); PLATELET COUNT 75 x10^3/uL (130-400)
[2019-01-16 03:05] LABS: <PLATELET ESTIMATE> DECREASED; <RBC MORPHOLOGY> NORMAL; BAND#(MANUAL) 0.23 x10^3/uL; BANDS%(MANUAL) 1 % (0-7); GIANT PLATELETS 2+; LARGE PLATELETS 2+; LYMPH#(MANUAL) 2.26 x10^3/uL (1-3.4); LYMPHS% (MANUAL) 10 % (22-44); MONOS#(MANUAL) 2.26 x10^3/uL (0.3-2.7); MONOS% (MANUAL) 10 % (2-9); SEG#(MANUAL) 17.85 x10^3/uL (1.8-6.8); SEGS% (MANUAL) 79 % (42-75)
[2019-01-16] MEDS ORDERED: ACETAMINOPHEN 500 MG TABLET ONE (03:27)
[2019-01-16] MEDS ORDERED: LORazepam 1MG TABLET ONE (03:28)
[2019-01-16] MEDS ORDERED: LORazepam 1MG TABLET PO ONE (03:30)
[2019-01-16] MEDS ORDERED: OMNIPAQUE 350 MG/ML, 75ML BOTTLE ONE (03:44)
--- NOTE | 2019-01-16 04:44 | NUR ---
PT AMBULATED TO BATHROOM. CONTINUES TO HAVE COMPLAINTS OF SHAKING DUE TO ANXIETY. STATES ALSO HAS HEADACHE NOW. SPOUSE AT BEDSIDE. PT RESTING IN GURNEY NOW.
[2019-01-16] MEDS ORDERED: LORazepam 2 MG/ML, 1ML ONE (04:59)
[2019-01-16] MEDS ORDERED: LORazepam 2 MG/ML, 1ML IVPush ONE (05:00)
--- NOTE | 2019-01-16 05:32 | NUR ---
PTS SHAKING HAS NOTICEABLY DECREASED. PT CONTINUES TO COMPLAIN OF A HEADACHE AND STATES HER SHAKING HAS NOT DECREASED. POC DISCUSSED. PT AND SPOUSE DENY FURTHER NEEDS AT THIS TIME. CALL LIGHT ON LAP.
[2019-01-16 06:01] VITALS: BP 125/80
== END 2019-01-16 06:11 | disposition home or self-care (01) ==
LOC: ED 02:21
DX: R07.89 Other chest pain (principal); R00.2 Palpitations; I10 Essential (primary) hypertension; J45.909 Unspecified asthma, uncomplicated; F32.9 Major depressive disorder, single episode, unspecified; F17.200 Nicotine dependence, unspecified, uncomplicated; Z90.81 Acquired absence of spleen
CPT/HCPCS: 36415; 71045; 71260; 80053; 80307; 83880; 84484; 85025; 85379; 85610; 85730; 93005; 96374; 99284; J2060; Q9967

== ENCOUNTER 2019-01-17 13:32 | Emergency (ER) | payer MEDICARE ==
[~2019-01-17] VITALS: Ht 157.5 cm; Wt 58.6 kg
[2019-01-17] MEDS ORDERED: LORazepam 1MG TABLET ONE ×2 (14:04→15:27)
--- NOTE | 2019-01-17 14:06 | NUR ---
PT MEDICATED PER MAR FOR ANXIETY. PT VERY TEARFUL UPON ASSESSMENT. FAMILY AT BEDSIDE. CALL LIGHT WITHIN REACH.
[2019-01-17] MEDS ORDERED: LORazepam 1MG TABLET PO ONE ×2 (14:30→15:30)
[2019-01-17 15:30] VITALS: BP 139/92
[2019-01-17] MEDS ORDERED: ACETAMINOPHEN 500 MG TABLET ONE (15:33)
[2019-01-17] MEDS ORDERED: ACETAMINOPHEN 500 MG TABLET PO ONE (16:00)
[2019-01-17] MEDS ORDERED: NICOTINE 21 MG/24 HR PATCH.TD24 ONE (16:13)
[2019-01-17] MEDS ORDERED: NICOTINE 21 MG/24 HR PATCH.TD24 TD ONE (16:30)
== END 2019-01-17 16:20 | disposition home or self-care (01) ==
LOC: ED 16:14
DX: F41.1 Generalized anxiety disorder (principal); I10 Essential (primary) hypertension; F32.9 Major depressive disorder, single episode, unspecified; J45.909 Unspecified asthma, uncomplicated
CPT/HCPCS: 99284

== ENCOUNTER 2019-01-19 06:24 | Emergency (ER) | payer MEDICARE ==
[~2019-01-19] VITALS: Ht 157.5 cm; Wt 64.0 kg
[2019-01-19 06:26] VITALS: BP 134/89
--- NOTE | 2019-01-19 06:38 | NUR ---
MERE DALEY AT TO EVAL PT. AND DISCUSS POC WITH PT. AND FAMILY.
--- NOTE | 2019-01-19 06:38 | NUR ---
AM MEDS REQUESTED FROM PHARMACY.
[2019-01-19] MEDS ORDERED: LORazepam 1MG TABLET PO ONE (07:00)
[2019-01-19] MEDS ORDERED: LORazepam 1MG TABLET ONE (07:08)
[2019-01-19] MEDS ORDERED: ACETAMINOPHEN 325 MG TABLET PO ONE (07:30)
[2019-01-19] MEDS ORDERED: ACETAMINOPHEN 325 MG TABLET ONE (08:02)
== END 2019-01-19 09:06 | disposition home or self-care (01) ==
LOC: ED 06:44
DX: F32.9 Major depressive disorder, single episode, unspecified (principal); F43.23 Adjustment disorder with mixed anxiety and depressed mood; F41.1 Generalized anxiety disorder; Z88.0 Allergy status to penicillin; Z88.6 Allergy status to analgesic agent
CPT/HCPCS: 99284

== ENCOUNTER 2019-06-12 18:28 | Emergency (ER) | payer MEDICARE ==
[~2019-06-12] VITALS: Ht 157.5 cm; Wt 63.5 kg
[2019-06-12 19:07] VITALS: BP 190/108
== END 2019-06-12 21:41 | disposition home or self-care (01) ==
LOC: ED 20:43
DX: K29.20 Alcoholic gastritis without bleeding (principal); F10.129 Alcohol abuse with intoxication, unspecified; Y90.0 Blood alcohol level of less than 20 mg/100 ml; I10 Essential (primary) hypertension; J45.909 Unspecified asthma, uncomplicated; F41.1 Generalized anxiety disorder; F32.9 Major depressive disorder, single episode, unspecified; Z72.9 Problem related to lifestyle, unspecified; F17.200 Nicotine dependence, unspecified, uncomplicated
CPT/HCPCS: 36415; 74177; 80053; 83690; 85025; 96361; 96372; 96374; 96375; 96376; 99284; J2060; J2405; J2550; J7030

== ENCOUNTER 2019-11-02 14:56 | Inpatient (IN) | payer MEDICARE ==
[~2019-11-02] VITALS: Ht 157.5 cm; Wt 74.6 kg
[~2019-11-02 14:56] MED LIST changes: +ALBU8.5H8 INH; +LORA0.5T PO; +THIA100T67 PO
--- NOTE | 2019-11-02 15:52 | NUR ---
PLATELET TRANSFUSION STARTED. PT TOLERATING INFUSION
[2019-11-02 15:56] LABS: ALANINE AMINOTRANSFERASE 36 U/L (12-78); ANION GAP 5 mmol/L (5-15); CALCIUM 8.4 mg/dL (8.5-10.1); CHLORIDE 111 mmol/L (98-107); CREATININE 0.92 mg/dL (0.55-1.02)
[2019-11-02 15:57] LABS: INTERNATIONAL NORMALIZED RATIO 0.95 (0.93-1.1)
[2019-11-02 15:59] LABS: ALKALINE PHOSPHATASE 98 U/L (45-117); BILIRUBIN,TOTAL 0.2 mg/dL (0.2-1.0); TOTAL PROTEIN 6.6 g/dL (6.4-8.2)
[2019-11-02] MEDS ORDERED: LORazepam 1MG TABLET PO ONE (16:00)
[2019-11-02] MEDS ORDERED: LORazepam 1MG TABLET ONE (16:05)
--- NOTE | 2019-11-02 16:14 | NUR ---
PT PRESENTS FROM [facility] W LOW PLT COUNT AT 7000. PT STATES SHE HAS THROMBOCYTOPENIA, RECEIVES INJECTIONS TO KEEP HER PLT UP. HASNT SEEN HEMOTALOGIST IN 4 MONTHS. AT BEDSIDE DISCUSSING POC. LABS DRAWN, PT HAS CO ANXIETY, MEDICATED W ATIVAN. IV ESTABLISHED. VS STABLE.
[2019-11-02] MEDS ORDERED: DEXAMETHASONE 4 MG TABLET PO ONE (16:30)
[2019-11-02 16:52] VITALS: BP 159/96
[2019-11-02 17:07] VITALS: BP 141/79
[2019-11-02 17:25] LABS: MD YES; MEAN CORPUSCULAR HEMOGLOBIN 26.7 pg (27.0-34.8); MEAN CORPUSCULAR HGB CONC 32.2 g/dL (32.4-35.8); MEAN CORPUSCULAR VOLUME 83.2 fL (80-100); MEAN PLATELET VOLUME 12.7 fL (7.4-10.4); RED BLOOD COUNT 5.17 x10^6/uL (3.82-5.3); RED CELL DISTRIBUTION WIDTH 17.4 % (9.6-15.2)
[2019-11-02 17:27] LABS: PLATELET COUNT 35 x10^3/uL (130-400)
--- NOTE | 2019-11-02 17:30 | NUR ---
[facility] AT BEDSIDE DISCUSSING POC FOR ADMIT.
--- NOTE | 2019-11-02 17:31 | NUR ---
PT AMBULATED TO BATHROOM W STEADY GAIT. PT TOLERATING TRANSFUSION.
[2019-11-02] MEDS ORDERED: POTASSIUM CHLORIDE 20 MEQ, MVI ADULT 10 ML, FOLIC ACID 1 MG, MAGNESIUM SULFATE 1 GM in ... IV SCH (17:37)
--- NOTE | 2019-11-02 17:39 | NUR ---
PT STATES LAST DRINK WAS YESTERDAY. EXPERIENCES SHAKES, AND SWEATS FROM DETOX
[2019-11-02 17:45] LABS: ANISOCYTOSIS 1+; EOS#(MANUAL) 0.11 x10^3/uL (0.0-0.4); EOS% (MANUAL) 1 % (1-7); LYMPH#(MANUAL) 4.37 x10^3/uL (1-3.4); LYMPHS% (MANUAL) 39 % (22-44); MONOS% (MANUAL) 17 % (2-9); SEG#(MANUAL) 4.82 x10^3/uL (1.8-6.8); SEGS% (MANUAL) 43 % (42-75)
[2019-11-02 17:46] LABS: POLYCHROMASIA 1+
[2019-11-02 17:47] LABS: <PLATELET ESTIMATE> DECREASED; GIANT PLATELETS 2+; LARGE PLATELETS 2+
[2019-11-02] MEDS ORDERED: FOLIC ACID 5 MG/ML IM ONE (18:00)
[2019-11-02] MEDS ORDERED: LORazepam 1MG TABLET PO PRN ×2 (18:00)
[2019-11-02] MEDS ORDERED: DOCUSATE 100 MG CAPSULE PO PRN (18:00)
[2019-11-02] MEDS ORDERED: LABETALOL 5MG/ML, 20ML IVPush PRN (18:00)
[2019-11-02] MEDS ORDERED: hydrALAzine 20 MG/ML, 1ML IVPush PRN (18:00)
[2019-11-02] MEDS ORDERED: IMMUNE GLOB (GAMUNEX) 10GM/100ML IVPB ONE (18:00)
[2019-11-02] MEDS ORDERED: METOCLOPRAMIDE 5 MG/ML, 2ML IVPush PRN (18:00)
[2019-11-02] MEDS ORDERED: ONDANSETRON 2MG/ML, 2ML IVPush PRN (18:00)
[2019-11-02] MEDS ORDERED: POLYETHYLENE GLYCOL 17 GM PACKET PO PRN (18:00)
--- NOTE | 2019-11-02 18:32 | NUR ---
REPORT TO PATI.
[2019-11-02 18:43] VITALS: BP 136/77
[2019-11-02] MEDS ORDERED: FOLIC ACID 1 MG TABLET PO ONE (20:00)
[2019-11-02] MEDS: NICOTINE 21 MG/24 HR PATCH.TD24 TD SCH (23:13)
[2019-11-03 01:27] VITALS: BP 138/86
[2019-11-03] MEDS: LORazepam 0.5MG TABLET PO PRN (02:42)
[2019-11-03] MEDS: SODIUM CHLORIDE 0.9% 1,000 ML IV SCH ×2 (04:49→14:45)
[2019-11-03 06:09] LABS: CHLORIDE 114 mmol/L (98-107)
[2019-11-03 06:15] LABS: ALANINE AMINOTRANSFERASE 39 U/L (12-78); ALBUMIN 3.1 g/dL (3.4-5.0); ALKALINE PHOSPHATASE 108 U/L (45-117); ANION GAP 6 mmol/L (5-15); BILIRUBIN,TOTAL 0.1 mg/dL (0.2-1.0); CALCIUM 8.6 mg/dL (8.5-10.1); CREATININE 0.78 mg/dL (0.55-1.02); TOTAL PROTEIN 7.3 g/dL (6.4-8.2)
[2019-11-03 06:58] VITALS: BP 137/84
[2019-11-03 07:10] LABS: MEAN CORPUSCULAR HEMOGLOBIN 26.7 pg (27.0-34.8); MEAN CORPUSCULAR HGB CONC 31.9 g/dL (32.4-35.8); MEAN CORPUSCULAR VOLUME 83.6 fL (80-100); MEAN PLATELET VOLUME 12.7 fL (7.4-10.4); PLATELET COUNT 99 x10^3/uL (130-400); RED BLOOD COUNT 5.38 x10^6/uL (3.82-5.3); RED CELL DISTRIBUTION WIDTH 17.6 % (9.6-15.2)
[2019-11-03 07:11] LABS: MD YES
[2019-11-03 07:13] LABS: BAND#(MANUAL) 0.14 x10^3/uL; BANDS%(MANUAL) 2 % (0-7); LYMPH#(MANUAL) 0.21 x10^3/uL (1-3.4); LYMPHS% (MANUAL) 3 % (22-44); MONOS#(MANUAL) 0.07 x10^3/uL (0.3-2.7); MONOS% (MANUAL) 1 % (2-9); SEG#(MANUAL) 6.49 x10^3/uL (1.8-6.8); SEGS% (MANUAL) 94 % (42-75)
[2019-11-03 07:15] LABS: ANISOCYTOSIS 1+; HOWELL-JOLLY BODIES 1+; OVALOCYTES 1+; POLYCHROMASIA 1+
[2019-11-03 07:16] LABS: <PLATELET ESTIMATE> DECREASED; GIANT PLATELETS 2+; LARGE PLATELETS 2+
[2019-11-03 07:18] LABS: ACANTHOCYTES 1+
[2019-11-03] MEDS ORDERED: QUETIAPINE 200 MG TABLET PO SCH (09:00)
[2019-11-03] MEDS: MULTIVITAMINS/MINERALS TABLET PO SCH (10:07)
[2019-11-03] MEDS: LISINOPRIL 20 MG TABLET PO SCH (10:08)
[2019-11-03] MEDS: NEUTRA PHOS K 250 MG TABLET PO SCH ×3 (10:58→21:48)
[2019-11-03] MEDS: INSULIN LISPRO 100 UNITS/ML, PEN SQ-INSULIN SCH ×3 (12:14→21:00)
[2019-11-03] MEDS ORDERED: GABA600T7 PO (13:10)
[2019-11-03] MEDS ORDERED: DULO30CA2 PO (13:10)
[2019-11-03] MEDS ORDERED: HYDR50CA2 PO (13:10)
[2019-11-03] MEDS ORDERED: SERT25TA3 PO (13:11)
[2019-11-03] MEDS: DEXAMETHASONE 4 MG TABLET PO SCH (13:12)
[2019-11-03 13:23] VITALS: BP 120/69
[2019-11-03] MEDS ORDERED: LORazepam 0.5MG TABLET PO PRN (13:30)
[2019-11-03] MEDS: ALBUTEROL SULFATE 2.5 MG/3 ML NPPB SCH ×2 (16:00→21:00)
[2019-11-03] MEDS: GABAPENTIN 300 MG CAPSULE PO SCH ×2 (16:52→21:48)
[2019-11-03] MEDS: HYDROXYZINE PAMOATE 50MG CAP PO SCH ×2 (16:52→21:48)
[2019-11-03 17:17] LABS: MICROSCOPIC NOT IND
[2019-11-03 17:22] LABS: CULTURE INDICATED? NO
[2019-11-03] MEDS ORDERED: POTASSIUM CHLORIDE 20 MEQ, MVI ADULT 10 ML, FOLIC ACID 1 MG, MAGNESIUM SULFATE 1 GM in ... IV SCH (17:37)
[2019-11-03 19:33] VITALS: BP 121/76
[2019-11-03] MEDS ORDERED: QUETIAPINE 200 MG TABLET PO ONE (20:00)
[2019-11-03] MEDS: NICOTINE 21 MG/24 HR PATCH.TD24 TD SCH (21:48)
[2019-11-04 01:52] VITALS: BP 128/77
[2019-11-04] MEDS: ALBUTEROL SULFATE 2.5 MG/3 ML NPPB SCH ×4 (06:45→18:50)
[2019-11-04] MEDS: INSULIN LISPRO 100 UNITS/ML, PEN SQ-INSULIN SCH ×4 (07:00→19:36)
[2019-11-04 07:08] VITALS: BP 130/74
[2019-11-04] MEDS ORDERED: NEUTRA PHOS K 250 MG TABLET PO SCH (07:30)
[2019-11-04] MEDS ORDERED: SODIUM PHOSPHATE 30 MMOL in SODIUM CHLORIDE 0.9% 500 ML IV ONE (07:30)
[2019-11-04] MEDS: SODIUM CHLORIDE 0.9% 1,000 ML IV SCH (07:37)
[2019-11-04] MEDS: LORazepam 0.5MG TABLET PO PRN (08:06)
[2019-11-04] MEDS: NEUTRA PHOS K 250 MG TABLET PO SCH ×3 (08:06→20:30)
[2019-11-04] MEDS: GABAPENTIN 300 MG CAPSULE PO SCH ×3 (08:06→20:30)
[2019-11-04] MEDS: HYDROXYZINE PAMOATE 50MG CAP PO SCH ×3 (08:06→20:30)
[2019-11-04] MEDS: DULOXETINE 30 MG CAPSULE.DR PO SCH (08:07)
[2019-11-04] MEDS: THIAMINE 100MG TABLET PO SCH (08:07)
[2019-11-04] MEDS: MULTIVITAMINS/MINERALS TABLET PO SCH (08:07)
[2019-11-04] MEDS: SERTRALINE 50MG TABLET PO SCH (08:07)
[2019-11-04] MEDS: DEXAMETHASONE 4 MG TABLET PO SCH (08:07)
[2019-11-04] MEDS: LISINOPRIL 20 MG TABLET PO SCH (08:07)
[2019-11-04 09:03] LABS: ANION GAP 5 mmol/L (5-15); CALCIUM 7.8 mg/dL (8.5-10.1); CHLORIDE 117 mmol/L (98-107)
[2019-11-04 09:04] LABS: CREATININE 0.54 mg/dL (0.55-1.02)
[2019-11-04 09:44] LABS: MEAN CORPUSCULAR HGB CONC 31.9 g/dL (32.4-35.8); MEAN CORPUSCULAR VOLUME 84.6 fL (80-100); RED BLOOD COUNT 4.83 x10^6/uL (3.82-5.3); RED CELL DISTRIBUTION WIDTH 16.9 % (9.6-15.2)
[2019-11-04 09:45] LABS: MD YES; MEAN PLATELET VOLUME 10.8 fL (7.4-10.4)
[2019-11-04 09:51] LABS: ANISOCYTOSIS 1+; LYMPH#(MANUAL) 4.32 x10^3/uL (1-3.4); LYMPHS% (MANUAL) 20 % (22-44); MONOS#(MANUAL) 2.59 x10^3/uL (0.3-2.7); MONOS% (MANUAL) 12 % (2-9); OVALOCYTES 1+; POLYCHROMASIA 1+; SEG#(MANUAL) 14.69 x10^3/uL (1.8-6.8); SEGS% (MANUAL) 68 % (42-75)
[2019-11-04 09:52] LABS: <PLATELET ESTIMATE> DECREASED; GIANT PLATELETS 1+; LARGE PLATELETS 2+
[2019-11-04 10:00] LABS: PLATELET COUNT 24 x10^3/uL (130-400)
[2019-11-04] MEDS ORDERED: IMMUNE GLOBULIN IV ONE (10:00)
[2019-11-04] MEDS: ACETAMINOPHEN 500 MG TABLET PO PRN ×2 (10:14→17:03)
[2019-11-04] MEDS ORDERED: IMMUNE GLOBULIN 60 GM in VIAL 0 EACH IV ONE (10:30)
[2019-11-04] MEDS ORDERED: POTASSIUM CHLORIDE 20 MEQ TAB.ER.PRT PO ONE (11:30)
[2019-11-04 13:40] VITALS: BP 132/86
[2019-11-04 19:50] VITALS: BP 148/89
[2019-11-04] MEDS: NICOTINE 21 MG/24 HR PATCH.TD24 TD SCH (20:34)
[2019-11-04] MEDS ORDERED: QUETIAPINE 200 MG TABLET PO SCH (21:00)
[2019-11-05 01:52] VITALS: BP 130/84
[2019-11-05 06:28] LABS: ANION GAP 4 mmol/L (5-15); CHLORIDE 111 mmol/L (98-107); CREATININE 0.58 mg/dL (0.55-1.02)
[2019-11-05 06:59] LABS: MEAN CORPUSCULAR HEMOGLOBIN 26.8 pg (27.0-34.8); MEAN CORPUSCULAR HGB CONC 32.5 g/dL (32.4-35.8); MEAN CORPUSCULAR VOLUME 82.3 fL (80-100); PLATELET COUNT 104 x10^3/uL (130-400); RED CELL DISTRIBUTION WIDTH 17.6 % (9.6-15.2)
[2019-11-05] MEDS: INSULIN LISPRO 100 UNITS/ML, PEN SQ-INSULIN SCH ×2 (07:00→11:00)
[2019-11-05] MEDS: ALBUTEROL SULFATE 2.5 MG/3 ML NPPB SCH (07:15)
[2019-11-05 07:19] LABS: MD YES
[2019-11-05 07:20] VITALS: BP 125/78
[2019-11-05 07:21] LABS: <PLATELET ESTIMATE> DECREASED; ANISOCYTOSIS 1+; GIANT PLATELETS 1+; LARGE PLATELETS 2+; LYMPH#(MANUAL) 1.95 x10^3/uL (1-3.4); LYMPHS% (MANUAL) 21 % (22-44); MONOS#(MANUAL) 1.02 x10^3/uL (0.3-2.7); MONOS% (MANUAL) 11 % (2-9); OVALOCYTES 1+; POLYCHROMASIA 1+; SEG#(MANUAL) 6.32 x10^3/uL (1.8-6.8); SEGS% (MANUAL) 68 % (42-75)
[2019-11-05] MEDS: HYDROXYZINE PAMOATE 50MG CAP PO SCH (08:22)
[2019-11-05] MEDS: THIAMINE 100MG TABLET PO SCH (08:22)
[2019-11-05] MEDS: SERTRALINE 50MG TABLET PO SCH (08:22)
[2019-11-05] MEDS: NEUTRA PHOS K 250 MG TABLET PO SCH (08:23)
[2019-11-05] MEDS: DULOXETINE 30 MG CAPSULE.DR PO SCH (08:23)
[2019-11-05] MEDS: GABAPENTIN 300 MG CAPSULE PO SCH (08:23)
[2019-11-05] MEDS: MULTIVITAMINS/MINERALS TABLET PO SCH (08:23)
[2019-11-05] MEDS: LISINOPRIL 20 MG TABLET PO SCH (08:25)
[2019-11-05 08:26] VITALS: BP 139/85
[2019-11-05] MEDS ORDERED: FOLIC ACID 1 MG TABLET PO SCH (09:00)
[2019-11-05] MEDS ORDERED: NICO-487 TD (09:01)
[2019-11-05] MEDS ORDERED: FOLI-17 PO (09:01)
== END 2019-11-05 12:45 | disposition home or self-care (01) | DRG 813 ==
LOC: ED 15:25 → EDIP 16:11 → 4EST 19:35 → DCLOUNGE 11-05 12:36
PROVIDERS: ADMIT Internal Medicine; ATTEND Internal Medicine
PROC: 6A550Z2 Pheresis of Platelets, Single (ICD-10-PCS; principal; 2019-11-02)
PROC: 30233R1 Transfusion of Nonautologous Platelets into Peripheral Vein, Percutaneous Approach (ICD-10-PCS; 2019-11-02)
PROC: 30233S1 Transfusion of Nonautologous Globulin into Peripheral Vein, Percutaneous Approach (ICD-10-PCS; 2019-11-02)
DX: D69.59 Other secondary thrombocytopenia (principal); F10.239 Alcohol dependence with withdrawal, unspecified; D69.3 Immune thrombocytopenic purpura; G47.00 Insomnia, unspecified; I10 Essential (primary) hypertension; F17.200 Nicotine dependence, unspecified, uncomplicated; J44.9 Chronic obstructive pulmonary disease, unspecified; F41.9 Anxiety disorder, unspecified; F32.9 Major depressive disorder, single episode, unspecified; D72.829 Elevated white blood cell count, unspecified; Z53.20 Procedure and treatment not carried out because of patient's decision for unspecified reasons; Z90.81 Acquired absence of spleen; Z87.11 Personal history of peptic ulcer disease; Z86.2 Personal history of diseases of the blood and blood-forming organs and certain disorders involving the immune mechanism; Z91.19 Patient's noncompliance with other medical treatment and regimen
CPT/HCPCS: 36415; 80048; 80053; 80307; 81003; 82962; 83036; 83735; 84100; 85025; 85610; 85730; 86850; 86900; 93005; 94640; 99285; G0378; J1561; J2405; J3475; J3480; J7042; J7613; J1815; J7030; P9035

== ENCOUNTER 2021-02-02 23:36 | Emergency (ER) | payer SELFPAY ==
[~2021-02-02] VITALS: Ht 157.5 cm; Wt 90.0 kg
[~2021-02-02 23:36] MED LIST changes: +ASCO500T9 PO; +CLIN300C9 PO; +DULO30CA2 PO; +FOLI1TAB32 PO; +GABA600T7 PO; +HYDR2TAB29 PO; +HYDR50CA2 PO; -NICO-487 TD; +NICO-587 TD; +SENN-190 PO; -SENN-88 PO; +SERT-331 PO; +ZINC220C7 PO
[2021-02-03] MEDS ORDERED: ONDANSETRON 2MG/ML, 2ML ONE (00:11)
[2021-02-03] MEDS ORDERED: HYDROmorphone 1 MG/ML, 1ML INJ ONE (00:11)
[2021-02-03 00:20] LABS: BASOPHILS % (AUTO) 1 % (0-1); EOSINOPHILS % (AUTO) 1 % (1-7); LYMPHOCYTES % (AUTO) 13 % (22-44); MEAN CORPUSCULAR HEMOGLOBIN 29.7 pg (27.0-34.8); MEAN CORPUSCULAR HGB CONC 33.8 g/dL (32.4-35.8); MEAN PLATELET VOLUME 16.4 fL (7.4-10.4); MONOCYTES % (AUTO) 9 % (2-9); NEUTROPHILS % (AUTO) 76 % (42-75); PLATELET COUNT 67 x10^3/uL (130-400); RED BLOOD COUNT 5.54 x10^6/uL (3.82-5.3); RED CELL DISTRIBUTION WIDTH 14.1 % (9.6-15.2)
[2021-02-03 00:30] LABS: ALANINE AMINOTRANSFERASE 22 U/L (12-78); ALBUMIN 3.6 g/dL (3.4-5.0); ANION GAP 6 mmol/L (5-15); CHLORIDE 108 mmol/L (98-107); CREATININE 0.63 mg/dL (0.55-1.02)
[2021-02-03] MEDS ORDERED: ONDANSETRON 2MG/ML, 2ML IVPush ONE (00:30)
[2021-02-03] MEDS ORDERED: HYDROmorphone 1 MG/ML, 1ML INJ IV ONE (00:30)
[2021-02-03 00:34] LABS: ALKALINE PHOSPHATASE 99 U/L (45-117); BILIRUBIN,TOTAL 0.4 mg/dL (0.2-1.0); TOTAL PROTEIN 7.5 g/dL (6.4-8.2); TROPONIN I < 0.015 ng/mL (0.000-0.045)
[2021-02-03 00:47] LABS: MD SCAN
[2021-02-03] MEDS ORDERED: OMNIPAQUE 350 MG/ML, 100ML BOTTLE ONE (01:17)
--- NOTE | 2021-02-03 01:22 | NUR ---
pt in bed, noted o2 saturation 88% on room air. pt instructed to pursed lip breathe and gievn o2 via nasal cannula at 2l/min. spo2 improves to 93%. pt in bed with head of bed elevated, asking for more narcotics. when this rn informed pt that shes not breathing effectively and that it would be dangerous to give her more medications that would supress her respiratory drive pt suddenly becomes more alert and awake. pt in bed with monitor in place, bed rails up bilaterally and call light within reach. no signs or symptoms of acute distress noted respirations even and unlabored
--- NOTE | 2021-02-03 01:23 | NUR ---
REPORT GIVEN TO MONTSERRAT PADILLA.
--- NOTE | 2021-02-03 01:42 | NUR ---
pt called to get up to toilet, complaining of feeling dizzy. pt up to bedpan, rn cleaned pt prior to voiding in order to facilitate ua collection. pt asked to wipe herself after, noted to wipe back to front. pt instructed that proper wiping is front to back, pt educated about the dangers of contaminating urethra and vagina with fecal debris when wiping back to front. pt states she didnt know that. pt placed back on nc at 2l/min and encouraged to pursed lip breathe. ua collected and sent to lab. pt in bed with head of bed elevated, bed rails up bilaterally and call light within reach. lights low in room for comfort.
[2021-02-03 01:44] VITALS: BP 192/106
[2021-02-03 01:50] LABS: MICROSCOPIC INDICATED
[2021-02-03] MEDS ORDERED: DICYCLOMINE 20 MG TABLET ONE (02:29)
[2021-02-03] MEDS ORDERED: DICYCLOMINE 20 MG TABLET PO ONE (02:30)
--- NOTE | 2021-02-03 02:40 | NUR ---
rn at bedside to dc pt and do discharge instructions, pt states that she doesnt think that her case was investigated enough to find the source of her pain, pt informed that she has had a very thorough workup in the unit and now needs to follow up with primary care physician. pt educated on rx medications for discharge, pt asking for "something to make me sleep". pt informed that she already has a lot of home medications for the same, pt states she didnt take them today. pt instructed to take her medications as ordered. pt also instructed on importance of good hygiene when toileting, enouraged to have good fluid status and to void regularly to avoid future uti. pt encouraged to follow up with provided referal and pcp. pt verbalizes understanding and agreement. pt ready for dc, friend at bedside with wheel chair to take pt out of unit. no signs or symptoms of acute distress noted respirations even and unlabored.
== END 2021-02-03 02:44 | disposition home or self-care (01) ==
LOC: ED 02-03 00:37
DX: R10.32 Left lower quadrant pain (principal); R11.2 Nausea with vomiting, unspecified; F17.200 Nicotine dependence, unspecified, uncomplicated; I10 Essential (primary) hypertension; J45.909 Unspecified asthma, uncomplicated
CPT/HCPCS: 36415; 74177; 80053; 80320; 81001; 83690; 84484; 85025; 87086; 96374; 96375; 99285; J1170; J2405; Q9967; G0480

== ENCOUNTER 2021-03-31 07:45 | Emergency (ER) | payer MEDICARE ==
[~2021-03-31] VITALS: Ht 157.5 cm; Wt 69.8 kg
--- NOTE | 2021-03-31 08:52 | NUR ---
industrial servicer: pt from lobby to T2
--- NOTE | 2021-03-31 09:00 | NUR ---
PT BIB VIA POV. PT HAS ABD PAIN AND STATES SHE HAS HAD PAINFUL URINATION. PT STATES PAIN IS 10/10 AND IS UNABLE TO URINATE D/T THE PAIN. PT EDUCATED ON IMPORTANCE OF GETTING URINE SAMPLE. PT RESTING IN GURNEY, MONITORING IN PLACE, PT MOANING AND STATING "I NEED STRONG PAIN MEDICATIONS", WCJACQUELIN. JAMES SEVERINO AT BEDSIDE FOR EVAL.
[2021-03-31 09:26] LABS: BASOPHILS % (AUTO) 0 % (0-1); EOSINOPHILS % (AUTO) 0 % (1-7); LYMPHOCYTES % (AUTO) 10 % (22-44); MEAN CORPUSCULAR HEMOGLOBIN 28.9 pg (27.0-34.8); MEAN CORPUSCULAR HGB CONC 32.9 g/dL (32.4-35.8); MEAN PLATELET VOLUME 16.2 fL (7.4-10.4); MONOCYTES % (AUTO) 4 % (2-9); NEUTROPHILS % (AUTO) 86 % (42-75); RED BLOOD COUNT 6.12 x10^6/uL (3.82-5.3); RED CELL DISTRIBUTION WIDTH 14.5 % (9.6-15.2)
[2021-03-31] MEDS ORDERED: SODIUM CHLORIDE 0.9% 1,000ML IVBOLUS ONE (09:30)
[2021-03-31] MEDS ORDERED: ONDANSETRON 2MG/ML, 2ML IVPush ONE (09:30)
[2021-03-31] MEDS ORDERED: MORPHINE SULFATE 4 MG/ML, 1ML IVPush PRN (09:30)
[2021-03-31] MEDS ORDERED: ONDANSETRON 2MG/ML, 2ML ONE (09:31)
[2021-03-31] MEDS ORDERED: MORPHINE SULFATE 4 MG/ML, 1ML ONE (09:32)
[2021-03-31 09:40] LABS: MD SCAN; PLATELET COUNT 71 x10^3/uL (130-400)
[2021-03-31 09:56] LABS: ALBUMIN 3.7 g/dL (3.4-5.0); CALCIUM 9.1 mg/dL (8.5-10.1); CREATININE 0.59 mg/dL (0.55-1.02)
[2021-03-31 10:01] LABS: ANION GAP 7 mmol/L (5-15); CHLORIDE 109 mmol/L (98-107)
[2021-03-31] MEDS ORDERED: HYDROmorphone 1 MG/ML, 1ML INJ ONE (10:24)
--- NOTE | 2021-03-31 10:26 | NUR ---
PT STATES SHE IS UNABLE TO PROVIDE URINE SAMPLE.
[2021-03-31] MEDS ORDERED: HYDROmorphone 1 MG/ML, 1ML INJ IV ONE (10:30)
--- NOTE | 2021-03-31 10:30 | NUR ---
PT MEDICATED PER EMAR. MONTSERRAT PFEIFFER AT BEDSIDE TO ASSIST IN REPOSITIONING PT AND HELP WITH PT COMFORT. AYSE.
--- NOTE | 2021-03-31 10:35 | NUR ---
PT O2 DOWN TO 82% AFTER MEDICATION ADMINISTRATION. PT PLACED ON 2L NC, PT O2 AT 94% AT THIS TIME.
[2021-03-31] MEDS ORDERED: METHOCARBAMOL 500 MG TABLET ONE (11:20)
[2021-03-31] MEDS ORDERED: METHOCARBAMOL 500 MG TABLET PO ONE (11:30)
--- NOTE | 2021-03-31 11:45 | NUR ---
PT RIPPED OUT IV. AWARE.
[2021-03-31 12:42] LABS: MICROSCOPIC INDICATED
[2021-03-31 13:25] VITALS: BP 140/84
== END 2021-03-31 13:27 | disposition home or self-care (01) ==
LOC: ED 10:20
DX: D69.3 Immune thrombocytopenic purpura (principal); R10.30 Lower abdominal pain, unspecified; R10.84 Generalized abdominal pain; R11.2 Nausea with vomiting, unspecified; R30.0 Dysuria; R00.0 Tachycardia, unspecified; F17.210 Nicotine dependence, cigarettes, uncomplicated
CPT/HCPCS: 36415; 71045; 80048; 81001; 82040; 83605; 83880; 85025; 87040; 93005; 96374; 96375; 99285; J1170; J2270; J2405; J7030

== ENCOUNTER 2021-05-20 14:47 | Emergency (ER) | payer SELFPAY ==
[~2021-05-20] VITALS: Ht 157.5 cm; Wt 68.1 kg
--- NOTE | 2021-05-20 15:28 | NUR ---
PT AMBULATED TO RESTROOM WITH SHUFFLING BUT STEADY GAIT TO PROVIDE URINE SAMPLE. UA COLLECTED AND SENT TO LAB.
[2021-05-20] MEDS ORDERED: ONDANSETRON 2MG/ML, 2ML IVPush ONE (15:30)
[2021-05-20] MEDS ORDERED: DICYCLOMINE 10 MG/ML, 2ML IM ONE (15:30)
[2021-05-20] MEDS ORDERED: SODIUM CHLORIDE 0.9% 1,000ML IVBOLUS ONE (15:30)
[2021-05-20] MEDS ORDERED: DICYCLOMINE 20 MG TABLET ONE (15:32)
[2021-05-20] MEDS ORDERED: ONDANSETRON 2MG/ML, 2ML ONE (15:32)
[2021-05-20] MEDS ORDERED: DICYCLOMINE 10 MG/ML, 2ML ONE (15:39)
--- NOTE | 2021-05-20 15:49 | NUR ---
MEDS ADMIN PER DEC. IVF RUNNING.
[2021-05-20] MEDS ORDERED: LISINOPRIL 20 MG TABLET PO ONE (16:00)
[2021-05-20 16:06] LABS: ANION GAP 7 mmol/L (5-15); CALCIUM 9.1 mg/dL (8.5-10.1); CHLORIDE 106 mmol/L (98-107); CREATININE 0.58 mg/dL (0.55-1.02)
[2021-05-20 16:07] LABS: ALANINE AMINOTRANSFERASE 19 U/L (12-78); ALBUMIN 3.5 g/dL (3.4-5.0); BASOPHILS % (AUTO) 1 % (0-1); EOSINOPHILS % (AUTO) 0 % (1-7); LYMPHOCYTES % (AUTO) 8 % (22-44); MEAN CORPUSCULAR HEMOGLOBIN 28.6 pg (27.0-34.8); MEAN PLATELET VOLUME 10.1 fL (7.4-10.4); MONOCYTES % (AUTO) 4 % (2-9); NEUTROPHILS % (AUTO) 88 % (42-75); RED BLOOD COUNT 5.91 x10^6/uL (3.82-5.3); RED CELL DISTRIBUTION WIDTH 14.5 % (9.6-15.2)
[2021-05-20 16:08] LABS: ALKALINE PHOSPHATASE 106 U/L (45-117); BILIRUBIN,TOTAL 0.3 mg/dL (0.2-1.0)
[2021-05-20] MEDS ORDERED: LISINOPRIL 20 MG TABLET ONE (16:11)
[2021-05-20 16:33] LABS: MICROSCOPIC INDICATED
--- NOTE | 2021-05-20 16:35 | NUR ---
BREAK RN- PT RESTING IN BED, TEARFUL
[2021-05-20] MEDS ORDERED: LORazepam 2 MG/ML, 1ML ONE (16:52)
--- NOTE | 2021-05-20 16:56 | NUR ---
[employer] DE[employer]Y SHERIFF PER MAR.
[2021-05-20 17:15] LABS: PLATELET COUNT 80 x10^3/uL (130-400)
[2021-05-20 17:18] LABS: <PLATELET ESTIMATE> DECREASED; <RBC MORPHOLOGY> NORMAL
[2021-05-20 17:19] LABS: GIANT PLATELETS 3+
--- NOTE | 2021-05-20 17:22 | NUR ---
ALL RESULTS ARE BACK AT THIS TIME. CHART UP FOR RECHECK.
--- NOTE | 2021-05-20 17:25 | NUR ---
RECEIVED N/O FOR CT.
[2021-05-20] MEDS ORDERED: LORazepam 2 MG/ML, 1ML IVPush ONE (17:30)
--- NOTE | 2021-05-20 17:41 | NUR ---
PT AT CT
[2021-05-20 17:52] VITALS: BP 193/115
[2021-05-20] MEDS ORDERED: OMNIPAQUE 350 MG/ML, 100ML BOTTLE ONE (17:57)
--- NOTE | 2021-05-20 18:07 | NUR ---
ALL RESULTS ARE BACK AT THIS TIME. CHART UP FOR RECHECK.
--- NOTE | 2021-05-20 18:55 | NUR ---
PT AMBULATED TO RESTROOM WITH STEADY GAIT. ALL QUESTIONS ANSWERED AT THIS TIME.
--- NOTE | 2021-05-20 19:02 | NUR ---
ERMD AT BEDSIDE TO UPDATE PT ON POC.
[2021-05-20] MEDS ORDERED: DIPHENHYDRAMINE 25 MG CAPSULE ONE (19:08)
[2021-05-20] MEDS ORDERED: DIPHENHYDRAMINE 25 MG CAPSULE PO ONE (19:30)
[2021-05-20] MEDS ORDERED: ONDANSETRON ODT 4 MG ONE (19:35)
[2021-05-20] MEDS ORDERED: ONDANSETRON ODT 4 MG PO ONE (20:00)
== END 2021-05-20 19:51 | disposition home or self-care (01) ==
LOC: ED 19:45
DX: R10.13 Epigastric pain (principal); R11.2 Nausea with vomiting, unspecified; J45.909 Unspecified asthma, uncomplicated; I10 Essential (primary) hypertension; Z87.11 Personal history of peptic ulcer disease; Z90.710 Acquired absence of both cervix and uterus
CPT/HCPCS: 36415; 74177; 80053; 81001; 85025; 96361; 96372; 96374; 96375; 99285; J0500; J2060; J2405; J7030; Q0162; Q0163; Q9967